=== PATIENT | female | born 1990 | race Caucasian/White ===

== ENCOUNTER 2017-02-21 08:15 | Emergency (ER) | payer OTHER ==
[~2017-02-21] VITALS: Ht 172.7 cm; Wt 65.9 kg
[~2017-02-21 08:15] MED LIST: CAMILA0.35 MG PO; COLACE 100100 MG/CAP PO; FERROUS SULFATE65 MG PO; MACROBID 1100 MG/CAP PO; MOTRIN 600600 MG/TAB PO; NO HOME MEDICATIONS; PRENATAL1 TA1 PO; ZOFRAN ODT4 MG PO; ZYRTEC 10MG10 MG PO; ZYRTEC5 MG PO
[2017-02-21 08:19] VITALS: TEMP 98.6
[2017-02-21] MEDS ORDERED: IMITREX100 MG PO (08:22)
[2017-02-21] MEDS ORDERED: XULANE1 TDM TD (08:23)
[2017-02-21 10:08] VITALS: BP 122/60; PULSE 84
== END 2017-02-21 10:05 | disposition home or self-care (01) ==
LOC: COL.ER 08:15
DX: G43.909 Migraine, unspecified, not intractable, without status migrainosus (principal)
CPT/HCPCS: J1200; J1885; J2765; J7030

== ENCOUNTER 2021-01-25 18:47 | Emergency (ER) | payer OTHER ==
[~2021-01-25] VITALS: Ht 172.7 cm; Wt 70.5 kg
[~2021-01-25 18:47] MED LIST changes: +IMITREX100 MG PO; +XULANE1 TDM TD
[2021-01-25 19:41] LABS: COLLECTION METHOD CLEAN CATCH
[2021-01-25 19:47] LABS: PH 7 (5-8); SQUAMOUS EPITHELIAL 0-2 /hpf; URINE APPEARANCE Hazy; URINE BACTERIA None Seen /hpf; URINE BILIRUBIN Negative (NEGATIVE); URINE BLOOD Negative (NEGATIVE); URINE GLUCOSE Negative (NEGATIVE); URINE KETONE Negative (NEGATIVE); URINE LEUKOCYTE ESTERASE Negative (NEGATIVE); URINE NITRATE Negative (NEGATIVE); URINE PROTEIN(semi-quant) Negative (NEGATIVE); URINE RBC 0-2 /hpf; URINE UROBILINOGEN Negative (NEGATIVE)
[2021-01-25 19:58] LABS: URINE COLOR OTHER
[2021-01-25 20:11] LABS: BASO # 0.1 (0.0-0.2); BASO % 0.5 % (0.0-2.0); EOS # 0.2 (0.0-0.7); EOS % 1.6 % (0-4.0); GRAN # 6.5 (1.4-6.5); GRAN % 68.8 % (42.2-75.2); HEMOGLOBIN 11.6 g/dl (12.5-16.0); LYMPH # 1.9 (1.2-3.4); LYMPH % 20.6 % (20.0-51.0); MEAN CELL VOLUME 88 fl (80.0-100.0); MEAN CORPUSCULAR HEMOGLOBIN 30 pg (27.0-31.0); MEAN CORPUSCULAR HGB CONC 34 g/dl (33.0-37.0); MEAN PLATELET VOLUME 10.7 fl (7.4-10.4); MONO # 0.8 (0.1-0.6); MONO % 8.3 % (1.7-9.3); PLATELET COUNT 224 K/mm3 (130-400); RED BLOOD COUNT 3.88 M/mm3 (4.10-5.30); REDCELL DISTRIBUTION WIDTH-CV 12.4 % (11.5-14.5)
[2021-01-25 20:12] LABS: HEMATOCRIT 34.1 % (37.0-47.0)
[2021-01-25 22:09] VITALS: BP 109/75; PULSE 75; TEMP 98.8
== END 2021-01-25 22:20 | disposition home or self-care (01) ==
LOC: COL.ER 18:47
PROVIDERS: Nurse Practitioner
DX: O20.0 Threatened abortion (principal); Z3A.09 9 weeks gestation of pregnancy

== ENCOUNTER 2021-01-26 21:10 | Emergency (ER) | payer OTHER ==
[~2021-01-26] VITALS: Ht 172.7 cm; Wt 70.5 kg
[2021-01-26 22:24] LABS: BASO # 0.1 (0.0-0.2); BASO % 0.5 % (0.0-2.0); EOS # 0.2 (0.0-0.7); EOS % 2.1 % (0-4.0); HEMATOCRIT 33.1 % (37.0-47.0); HEMOGLOBIN 11.5 g/dl (12.5-16.0); LYMPH # 2.6 (1.2-3.4); LYMPH % 23.8 % (20.0-51.0); MEAN CELL VOLUME 85 fl (80.0-100.0); MEAN CORPUSCULAR HEMOGLOBIN 30 pg (27.0-31.0); MEAN CORPUSCULAR HGB CONC 35 g/dl (33.0-37.0); MEAN PLATELET VOLUME 10.6 fl (7.4-10.4); MONO # 0.9 (0.1-0.6); MONO % 8.1 % (1.7-9.3); PLATELET COUNT 225 K/mm3 (130-400); RED BLOOD COUNT 3.89 M/mm3 (4.10-5.30); REDCELL DISTRIBUTION WIDTH-CV 12.5 % (11.5-14.5)
[2021-01-26 23:01] LABS: COLLECTION METHOD CLEAN CATCH
[2021-01-26 23:07] LABS: PH 6 (5-8); SQUAMOUS EPITHELIAL None Seen /hpf; URINE APPEARANCE Clear; URINE BACTERIA Rare /hpf; URINE BILIRUBIN Negative (NEGATIVE); URINE BLOOD 3+ (NEGATIVE); URINE COLOR Yellow; URINE GLUCOSE Negative (NEGATIVE); URINE KETONE Negative (NEGATIVE); URINE LEUKOCYTE ESTERASE Negative (NEGATIVE); URINE NITRATE Negative (NEGATIVE); URINE PROTEIN(semi-quant) Negative (NEGATIVE); URINE RBC >50 /hpf; URINE UROBILINOGEN Negative (NEGATIVE)
[2021-01-27 00:55] VITALS: BP 91/55; PULSE 78; TEMP 98.3
== END 2021-01-27 00:55 | disposition home or self-care (01) ==
LOC: COL.ER 21:10
PROVIDERS: Nurse Practitioner
DX: O20.0 Threatened abortion (principal); Z3A.09 9 weeks gestation of pregnancy
CPT/HCPCS: J1200; J2270; J7030

== ENCOUNTER → 2021-01-26 | Outpatient (CLI) | payer OTHER | LOC: COL.RAD 08:03 | DX: O26.891 Other specified pregnancy related conditions, first trimester (principal); R10.9 Unspecified abdominal pain; Z3A.00 Weeks of gestation of pregnancy not specified ==

== ENCOUNTER 2021-06-27 18:38 | Emergency (ER) | payer OTHER ==
[~2021-06-27] VITALS: Ht 172.7 cm; Wt 72.7 kg
[2021-06-27 18:42] VITALS: BP 114/76; TEMP 98.5
[2021-06-27] MEDS ORDERED: PRENATAL TABLET PO (18:53)
[2021-06-27 20:23] VITALS: PULSE 79
== END 2021-06-27 20:26 | disposition home or self-care (01) ==
LOC: COL.ER 18:38
DX: O99.351 Diseases of the nervous system complicating pregnancy, first trimester (principal); G43.909 Migraine, unspecified, not intractable, without status migrainosus; Z3A.10 10 weeks gestation of pregnancy
CPT/HCPCS: J2765; J7030